=== PATIENT | male | born 2000 | race American Indian/Alaskan Native ===

== ENCOUNTER 2023-04-08 15:32 | Emergency (ER) | payer OTHER, SELFPAY ==
[2023-04-08 15:45] VITALS: BP 140/63; PULSE 63; RESP 16; TEMP 37; O2SAT 98; BMI 23.6
--- NOTE | 2023-04-08 16:29 | PC.NURSE ---
Laceration on left hand is u shaped jagged edge. partial thickness. Bleeding controlled with pressure dressing.
--- NOTE | 2023-04-08 16:42 | DI.RAD.S_ITS ---
PROCEDURE: XR HAND LT MIN 3V INDICATIONS: L hand shattered glass laceration r/o FB TECHNIQUE: 3 views of the hand(s) acquired. COMPARISON: None. FINDINGS: Bones: No fractures or dislocations. Carpal bones are normally aligned. No suspicious bony lesions. Soft tissues: Soft tissue laceration and edema are present overlying the 1st and 2nd digit, at the level of the distal 2nd metacarpal head. There is a linear area faint increased density measuring approximately 2 mm within the area laceration/edema. IMPRESSION: Soft tissue edema/laceration as above. 2 mm linear area of increased density is present. Foreign body cannot be excluded. Dictated by: Shamika Lou M.D. on 04/08/2023 at 17:13 Approved by: Shamika Lou M.D. on 04/08/2023 at 17:14
[2023-04-08 16:58] VITALS: BP 132/64; PULSE 60; RESP 20; TEMP 36.9; O2SAT 98
--- NOTE | 2023-04-08 17:56 | ED.WOUNDLAC ---
HPI - Wound/Laceration <JENNIFER Todd Last Filed: 04/08/23 18:09> General Chief Complaint: Wound/Laceration Stated Complaint: lt hand injury/lac Time Seen by Provider: 04/08/23 16:05 History of Present Illness HPI narrative: This is a 22-year-old male presents emergency department due to a left hand laceration. He was moving a large piece of glass when it shattered injuring the palm of his left hand. He denies any changes in range of motion of his distal fingers. He denies any accounts of ?spreading? bright red blood. His tetanus is up to date.. Related Data Previous Rx's Medication Instructions Recorded cephalexin 500 mg capsule 500 mg PO QID 7 days #28 caps 04/08/23 Review of Systems <JENNIFER Todd Last Filed: 04/08/23 18:09> Review of Systems Narrative: GENERAL: Denies chills, fatigue, malaise, fever, sweats. HEENT: Denies sinus pain, ear pain, sore throat, difficulty swallowing, dizziness. RESPIRATORY: Denies dyspnea, cough, wheezing, hemoptysis, sputum. CARDIOVASCULAR: Denies chest pain, palpitations, orthopnea, edema, GASTROINTESTINAL: Denies nausea, vomiting, abdominal pain, diarrhea, constipation, melena. : Denies dysuria, frequency, incontinence, hematuria, urinary retention. MUSCULOSKELETAL: denies weakness, joint pain, or bony pain SKIN: Left hand laceration NEUROLOGIC: Denies weakness, headache, numbness, change in speech, confusion, seizures, incoordination. PSYCHIATRIC: No concerning psychosocial issues. 12 point review of systems is negative except for those stated above Exam <JENNIFER Todd Last Filed: 04/08/23 18:09> Narrative Exam Narrative: GENERAL: Well-developed patient, in mild distress. HEAD: Atraumatic. Normocephalic. EYES: Pupils equal round and reactive. Extraocular motions intact. No scleral icterus. No injection or drainage. ENT: Nose without bleeding, purulent drainage. Throat without erythema, tonsillar hypertrophy or exudate. Airway patent. NECK: Trachea midline. Non tender EXTREMITIES: No edema or joint tenderness. BACK: Nontender without deformity or crepitance. No flank tenderness. NEURO: AOx3. SKIN: Approximately 6 cm curvilinear laceration to the palmar aspect of the left hand. Some oozing blood. Neurovascularly intact throughout. 2+ cap refill to the distal pointer finger. The lacerations affecting the lateral aspect of the palm of the hand just proximal to the left 2nd digit curving to the base of the thumb. Initial Vital Signs Initial Vital Signs: Vital Signs Temperature 98.6 F 04/08/23 15:45 Pulse Rate 63 04/08/23 15:45 Respiratory Rate 16 04/08/23 15:45 Blood Pressure 140/63 04/08/23 15:45 Pulse Oximetry 98 04/08/23 15:45 Oxygen Delivery Method Room Air 04/08/23 15:45 <DO Lynn Barriga Last Filed: 04/08/23 18:11> Initial Vital Signs Initial Vital Signs: Vital Signs Temperature 98.6 F 04/08/23 15:45 Pulse Rate 63 04/08/23 15:45 Respiratory Rate 16 04/08/23 15:45 Blood Pressure 140/63 04/08/23 15:45 Pulse Oximetry 98 04/08/23 15:45 Oxygen Delivery Method Room Air 04/08/23 15:45 Procedures <JENNIFER Todd Last Filed: 04/08/23 18:09> Laceration Repair Laceration 1: Time of procedure: 18:00 Site: other (Left hand) Side (If applicable): left Size (cm): 6 Description: other (Curvilinear) Depth: simple, single layer Local Anesthetic: lidocaine 2% and with epi Amount of anesthesia used (mL): 6 Pre-repair: wound explored and irrigated extensively Skin layer closed with: nylon Skin layer suture size: 5-0 Number of sutures: 11 Technique: simple, interrupted Course <JENNIFER Todd Last Filed: 04/08/23 18:09> Orders Ordered: ED Orders 04/08/23 16:42 XR hand LT min 3V Stat Vital Signs Vital signs: Vital Signs - 8 hr 04/08/23 15:45 04/08/23 16:58 Temperature 98.6 F 98.4 F Pulse Rate 63 60 Respiratory Rate 16 20 Blood Pressure 140/63 132/64 Pulse Oximetry 98 98 Oxygen Delivery Method Room Air Room Air <DO Lynn Barriga Last Filed: 04/08/23 18:11> Orders Ordered: ED Orders 04/08/23 16:42 XR hand LT min 3V Stat Vital Signs Vital signs: Vital Signs - 8 hr 04/08/23 15:45 04/08/23 16:58 Temperature 98.6 F 98.4 F Pulse Rate 63 60 Respiratory Rate 16 20 Blood Pressure 140/63 132/64 Pulse Oximetry 98 98 Oxygen Delivery Method Room Air Room Air MDM - Wound/Laceration <Dae Adam PA-C - Last Filed: 04/08/23 18:09> Imaging Data Extremity x-ray #1: Radiologist's Impression: [address] [address] XRay Report Signed Patient: Sunday Waite MR#: [id number] : 2000 Acct:[id number] Age/Sex: 22 / M Date of Service: 04/08/23 Loc: ED Accession Number: [id number] Procedure: XR hand LT min 3V Ordering Provider: Dae Adam P.A-C PROCEDURE: XR HAND LT MIN 3V INDICATIONS: L hand shattered glass laceration r/o FB TECHNIQUE: 3 views of the hand(s) acquired. COMPARISON: None. FINDINGS: Bones: No fractures or dislocations. Carpal bones are normally aligned. No suspicious bony lesions. Soft tissues: Soft tissue laceration and edema are present overlying the 1st and 2nd digit, at the level of the distal 2nd metacarpal head. There is a linear area faint increased density measuring approximately 2 mm within the area laceration/edema. IMPRESSION: Soft tissue edema/laceration as above. 2 mm linear area of increased density is present. Foreign body cannot be excluded. Dictated by: Shamika Lou M.D. on 04/08/2023 at 17:13 Approved by: Shamika Lou M.D. on 04/08/2023 at 17:14 [facility] Narrative Medical decision making narrative: This is a 22-year-old male presenting to the emergency department complaining of a left hand laceration. Tetanus was up-to-date. X-ray taken to rule out foreign body. Did mention a small 2 mm area of increased density and foreign body could not be excluded. Extensive palpation in irrigation no foreign bodies identified are visualized. Laceration closed without complications as mentioned in the procedure note above. Patient had full flexion-extension of the left 2nd digit and thumb and low concern for any kind of tendon injury. We will prescribe antibiotics based on nature of the wound and injury. CC: Left hand laceration Complicating co-morbidities: None Data collected from: Previous notes Medical records reviewed: Patient has not been to the emergency department the past Differential considered, but not limited to: Left hand laceration, tendon injury, fracture, foreign body Exam documented above, pertinent findings include: No evidence of any kind of extensor or flexor tendon injury. No foreign bodies palpated or visualized Lab Test results independently reviewed as above. Pertinent findings: Imaging studies independently reviewed: X-ray does mention a 2 mm area of increased density and foreign body can not be excluded. Extensive irrigation and palpation was unable to identify a glassy foreign body. Scores Used: None MIPS Elements: None Consultations: None Treatments: Laceration closure as above Re-evaluations: None Discussion: Discussed plan with the patient was comfortable with the plan Diagnosis: Left hand laceration Disposition: see below, along with detailed discharge instructions that have been reviewed with patient as well as indications for ED re-evaluation and additional outpatient follow up Discharge Plan Departure Patient Disposition: Home Clinical Impression: Laceration Instructions: How to Care for a Laceration After Repair, DI for Laceration Repair Activity Restrictions/Additional Instructions: Thank you for coming to the [facility] Emergency Department today. I am glad that we are able to close up the wound. Please follow up with your primary care provider or local urgent care for suture removal in 10-14 days. Please take the antibiotics to avoid any kind of infection. Please monitor the wound for any evidence of increased redness surrounding the wound, purulent drainage, or any other concerning signs or symptoms. I sent your medication to [facility] in [place]. I hope you feel better soon. Please follow up with your primary care provider within a week if your symptoms continue. If you do not have a primary care provider please contact the [facility] Resource line at [phone]. They will ask some questions about your medical history and help you get set up with a provider in the community. Prescriptions: New cephalexin 500 mg capsule 500 mg PO QID 7 Days Qty: 28 0RF Stand Alone Forms: Patient Portal/API, Work Release Note ED Sign-out <Abrahan Bates, DO - Last Filed: 04/08/23 18:11> Cosign ED Attending Cosignature Attestation: Dr Bates Co-Sign Statement: I was available for consultation during this patient's emergency department visit. This chart is signed by myself for administrative purposes only. I did not have direct contact with this patient during this visit. They were seen independently by the APC.
[2023-04-08] MEDS: LIDOCAINE 2% W/EPI INJ 6 ML INJ (18:22)
== END 2023-04-08 18:15 | disposition home or self-care (01) ==
PROVIDERS: Emergency Provider Physician Assistant Medical
DX: S61.412A Laceration without foreign body of left hand, initial encounter (principal); W25.XXXA Contact with sharp glass, initial encounter; Y99.0 Civilian activity done for income or pay
CPT/HCPCS: 12002; 73130; 99283